=== PATIENT | male | born 1950 | race Caucasian/White ===

== ENCOUNTER 2024-07-15 10:33 | Outpatient (CLI) | payer MEDICARE, MEDICAID ==
[2024-07-15] MEDS ORDERED: IODIXANOL 320 MG/ML INFUS..BTL 100ML IV ONE (10:48)
[2024-07-15 11:03] LABS: BASOPHILS # (AUTO) 0.1 X10'3 (0-0.2); BASOPHILS % (AUTO) 1.2 % (0-1); EOSINOPHILS # (AUTO) 0.5 X10'3 (0-0.9); EOSINOPHILS % (AUTO) 6.6 % (0-6); HEMATOCRIT 47.6 % (42.0-52.0); HEMOGLOBIN 15.6 g/dl (14.0-17.9); LYMPHOCYTES # (AUTO) 1.3 X10'3 (1.1-4.8); LYMPHOCYTES % (AUTO) 16.4 % (21-51); MEAN CORPUSCULAR HEMOGLOBIN 26.9 PG (27.0-31.0); MEAN CORPUSCULAR HGB CONC 32.8 g/dL (33.0-36.5); MEAN PLATELET VOLUME 7.6 FL (7.4-10.4); MONOCYTES # (AUTO) 0.7 X10'3 (0-0.9); NEUTROPHILS # (AUTO) 5.1 X10'3 (1.8-7.7); NEUTROPHILS % (AUTO) 66.8 % (42-75); PLATELET COUNT 238 X10'3 (140-440); RED BLOOD COUNT 5.81 X10'6 (4.70-6.10); WHITE BLOOD COUNT 7.7 X10'3 (4.5-11.0)
[2024-07-15 11:17] LABS: APTT 26 SECONDS (22-32); INR 1.1 INR; PROTHROMBIN TIME 11.2 SECONDS (9.0-12.0)
[2024-07-15 11:19] LABS: ANISOCYTOSIS 2+; PLATELET ESTIMATE NORMAL
[2024-07-15 11:29] LABS: ALANINE AMINOTRANSFERASE 72 U/L (12-78); ALBUMIN 4.3 G/DL (3.4-5.0); ALBUMIN/GLOBULIN RATIO 1.2 (1.1-1.5); ALKALINE PHOSPHATASE 95 IU/L (46-116); ANION GAP 10 (8-16); ASPARTATE AMINO TRANSFERASE 31 U/L (10-37); BILIRUBIN,TOTAL 0.9 MG/DL (0.1-1.0); BLOOD UREA NITROGEN 29 MG/DL (7-18); BUN/CREATININE RATIO 23.8 (10.0-20.0); CALCIUM 9.2 MG/DL (8.5-10.1); CHLORIDE 105 MMOL/L (99-107); CREATININE 1.22 MG/DL (0.60-1.10); GLUCOSE 95 MG/DL (70-104); POTASSIUM 4.7 MMOL/L (3.5-5.1); PRO BRAIN NATRIURETIC PEPTIDE 5394 PG/ML (0-125); SODIUM 141 MMOL/L (135-145); TOTAL CARBON DIOXIDE 26.4 MMOL/L (24-32); eGFR 58 ML/MIN
[2024-07-15] MEDS ORDERED: metoprolol tartrate 1mg/ml inj IV ONE (12:02)
== END 2024-07-15 23:59 | disposition home or self-care (01) ==
LOC: RAD 10:33
PROVIDERS: ATTEND Internal Medicine Cardiovascular Disease
DX: I35.0 Nonrheumatic aortic (valve) stenosis (principal); J94.8 Other specified pleural conditions; J98.11 Atelectasis; J98.4 Other disorders of lung; R06.02 Shortness of breath; I65.23 Occlusion and stenosis of bilateral carotid arteries; N40.0 Benign prostatic hyperplasia without lower urinary tract symptoms; M51.379 Other intervertebral disc degeneration, lumbosacral region without mention of lumbar back pain or lower extremity pain; M51.34 Other intervertebral disc degeneration, thoracic region; M16.11 Unilateral primary osteoarthritis, right hip
CPT/HCPCS: 36415; 71046; 71275; 74174; 75572; 80053; 83880; 85008; 85025; 85610; 85730; 93880; J3490; Q9967

== ENCOUNTER 2024-09-24 09:52 | Inpatient (IN) | payer MEDICARE, MEDICAID ==
[2024-09-21 15:08] LABS: BASOPHILS # (AUTO) 0.1 X10'3 (0-0.2); BASOPHILS % (AUTO) 1.2 % (0-1); BILIRUBIN,URINE NEGATIVE (Neg); CLARITY,URINE CLEAR (Clear); COLOR,URINE YELLOW (Yellow); EOSINOPHILS # (AUTO) 0.2 X10'3 (0-0.9); EOSINOPHILS % (AUTO) 3.2 % (0-6); GLUCOSE, URINE >=1000 mg/dl (Neg); KETONES,URINE NEGATIVE (Neg); LEUKOCYTE ESTERASE ,URINE NEGATIVE (Neg); LYMPHOCYTES # (AUTO) 1.1 X10'3 (1.1-4.8); LYMPHOCYTES % (AUTO) 15.6 % (21-51); MEAN CORPUSCULAR HEMOGLOBIN 28.6 PG (27.0-31.0); MEAN CORPUSCULAR VOLUME 89.4 FL (78-98); MEAN PLATELET VOLUME 7.8 FL (7.4-10.4); MONOCYTES # (AUTO) 0.7 X10'3 (0-0.9); MONOCYTES % (AUTO) 10.1 % (2-12); NEUTROPHILS % (AUTO) 69.9 % (42-75); NITRITES, URINE NEGATIVE (Neg); OCCULT BLOOD,URINE NEGATIVE (Neg); PH,URINE 5.5 (4.8-8.0); PRE OP HEMATOCRIT 48.1 % (42.0-52.0); PRE OP HEMOGLOBIN 15.4 g/dL (14.0-17.9); PRE OP PLATELET COUNT 227 X10'3 (140-440); PRE OP WHITE BLOOD COUNT 7.2 10'3 (4.8-10.8); PROTEIN,URINE NEGATIVE (Neg); RED BLOOD COUNT 5.38 X10'6 (4.70-6.10); RED CELL DISTRIBUTION WIDTH 19.6 % (11.5-14.5); UROBILINOGEN,URINE 0.2 E.U/dL (0.2-1.0)
[2024-09-21 15:09] LABS: UA COLLECTION TYPE CLN CATCH MIDSTREAM
[2024-09-21 15:18] LABS: BACTERIA,URINE FEW /HPF (Neg); MUCUS STRANDS NONE SEEN /LPF (Neg); RBC,URINE 0-2 /HPF (0-2); SQUAMOUS EPITHELIAL CELL,UR NONE SEEN /LPF (FEW); WBC,URINE NONE SEEN /HPF (0-4)
[2024-09-21 15:23] LABS: PRE OP INR 1.1 INR; PRE OP PROTIME 11.1 SECONDS (9.0-12.0)
[2024-09-21 15:28] LABS: ANISOCYTOSIS 2+; PLATELET ESTIMATE NORMAL
[2024-09-21 15:29] LABS: ELLIPTOCYTES FEW; TEAR DROP CELLS FEW
[2024-09-21 15:31] LABS: ALBUMIN 4.2 G/DL (3.4-5.0); ALBUMIN/GLOBULIN RATIO 1.1 (1.1-1.5); ALKALINE PHOSPHATASE 84 IU/L (46-116); BLOOD UREA NITROGEN 25 MG/DL (7-18); BUN/CREATININE RATIO 22.9 (10.0-20.0); CALCIUM 8.9 MG/DL (8.5-10.1); CHLORIDE 106 MMOL/L (99-107); CREATININE 1.09 MG/DL (0.60-1.10); PRE OP ALT 23 U/L (30-65); PRE OP ANION GAP 7 (8-16); PRE OP AST 15 U/L (10-37); PRE OP BILIRUB, TOTAL 1.1 MG/DL (0.0-1.0); PRE OP GLUCOSE 89 MG/DL (70-104); PRE OP POTASSIUM 5.1 MMOL/L (3.4-5.1); PRE OP SODIUM 140 MMOL/L (135-145); PRO BRAIN NATRIURETIC PEPTIDE 4499 PG/ML (0-125); TOTAL CARBON DIOXIDE 26.8 MMOL/L (24-32); TOTAL PROTEIN 7.9 G/DL (6.4-8.2); eGFR 66 ML/MIN
[2024-09-24] VITALS (12 sets, daily range): BP systolic 101–142; BP diastolic 51–72; PULSE 69–93; RESP 8–17; TEMP 97.7–97.8; O2SAT 94–100
[~2024-09-24] VITALS: Ht 190.5 cm; Wt 88.8 kg
[2024-09-24] MEDS: phenylephrine inj 50 MG in normal saline 250ml IV solN IV SCH (05:30)
[2024-09-24] MEDS: ceFAZolin 2gm in dextrose, iso 50 ML IV ONE (05:30)
[2024-09-24] MEDS: DOCUMENT DATE & TIME OF BETA-BLOCKER PO ONE (05:30)
[2024-09-24] MEDS: nitroPRUSSIDE sod inj. 50 MG in dextrose 5%-water 248 ML IV SCH (05:30)
[~2024-09-24 09:52] MED LIST: CARV3.122 PO; EMPA10TA PO; FURO-150 PO; SACU1TAB PO; ondansetron/PF 4mg/2ml inj IV PRN; protamine sulfate 10mg/ml inj. ONE
[2024-09-24] MEDS: VANCOMYCIN/WATER FOR INJ (PEG) 1.5GM/300 ML IVPB IV ONE (10:57)
[2024-09-24] MEDS: aspirin 325mg tablet PO ONE (10:57)
[2024-09-24] MEDS: famotidine 20mg tablet PO ONE (10:57)
[2024-09-24] MEDS: ringers solution, lacted 1,000 ML IV SCH ×2 (10:58→17:00)
[2024-09-24] MEDS ORDERED: morphine 4 MG/ML inj SYRINge IV PRN (13:30)
[2024-09-24] MEDS ORDERED: morphine 2 MG/ML inj. syringe IV PRN (13:30)
[2024-09-24] MEDS ORDERED: hydrALAZINE 20mg/ml inj. IV PRN ×2 (13:30→16:25)
[2024-09-24] MEDS ORDERED: proCHLORperazine 10 MG/2 ml inj IV PRN ×2 (13:30→16:25)
[2024-09-24] MEDS ORDERED: HYDROmorphone/PF 0.2 MG/ML SYRINGE IV PRN ×2 (13:30)
[2024-09-24] MEDS ORDERED: ondansetron/PF 4mg/2ml inj IV PRN ×2 (13:30→16:25)
[2024-09-24] MEDS ORDERED: meperidine/PF 25mg/ml syringe IV PRN (13:30)
[2024-09-24] MEDS ORDERED: acetaminophen 1,000mg/100ml IV 100 ML IV PRN (13:30)
[2024-09-24] MEDS ORDERED: labetalol 20mg/4ml (5mg/ml) syringe IV PRN ×2 (13:30→16:25)
[2024-09-24] MEDS ORDERED: NORepinephrine 8mg/ 250ml NS 250 ML IV ONE (14:34)
[2024-09-24] MEDS ORDERED: LIDOcaine 1% 30ml preserv. free vial ONE (14:42)
[2024-09-24] MEDS ORDERED: iohexol 350MG/ML 100ml bottle IV ONE (14:42)
[2024-09-24] MEDS ORDERED: heparin 1,000 UNITS/NS 500ml 1,500 ML ONE (14:43)
[2024-09-24] MEDS ORDERED: fentaNYL/PF 50MCG/1 ML 2ML syringe ONE (14:56)
[2024-09-24] MEDS ORDERED: midazolam 1 mg/ML 2ml injection ONE (14:56)
[2024-09-24] MEDS ORDERED: propofol inj 20 ML IV ONE ×2 (15:15)
[2024-09-24] MEDS ORDERED: heparin 1,000unit/ml 10ml vial 10 ML ONE (15:15)
[2024-09-24] MEDS ORDERED: LIDOCAINE 2%/EPI 1:100,000 inj. Multi-dose 20 ML VIAL ONE (16:14)
[2024-09-24] MEDS ORDERED: diphenhydrAMINE 25mg capsule PO PRN (16:25)
[2024-09-24] MEDS ORDERED: potassium Cl 40MEQ/1/2NS 520ml 520 ML IV PRN (16:25)
[2024-09-24] MEDS ORDERED: docusate sod 100mg capsule PO PRN (16:25)
[2024-09-24] MEDS ORDERED: potassium CL 10mEq/100ml bag 100 ML IV PRN (16:25)
[2024-09-24] MEDS: normal saline 1000ml 1,000 ML IV SCH (16:25)
[2024-09-24] MEDS ORDERED: ALPRAZolam 0.25mg tablet PO PRN (16:25)
[2024-09-24] MEDS ORDERED: potassium Cl 20mEq/100mL bag 100 ML IV PRN (16:25)
[2024-09-24] MEDS ORDERED: pantoprazole 40mg Tablet.DR PO PRN (16:25)
[2024-09-24] MEDS ORDERED: magnesium sulf-water 4G/100mL 100 ML IV PRN (16:25)
[2024-09-24] MEDS ORDERED: potassium Cl 20 mEq SR tablet PO PRN (16:25)
[2024-09-24] MEDS ORDERED: potassium Cl 40MEQ/270ML bag 250 ML IV PRN (16:25)
[2024-09-24] MEDS ORDERED: acetaminophen 325mg tablet PO PRN (16:25)
[2024-09-24] MEDS ORDERED: magnesium sulf-water 2g/50mL 50 ML IV PRN (16:25)
[2024-09-24] MEDS ORDERED: HYDROcodone/acetaminophen 5mg/325mg tablet PO PRN (16:25)
[2024-09-24] MEDS: sacubitril/valsartan 24mg-26mg tablet PO SCH (19:49)
[2024-09-24] MEDS: carVEDilol 3.125mg tablet PO SCH (19:49)
[2024-09-24] MEDS: vancomycin/NS 1 GM ADD-VANTAGE 250 ML IV SCH (19:51)
[2024-09-24] MEDS ORDERED: VANCOMYCIN 1GM 200ML H20 (PEG) 200 ML IV SCH (20:00)
[2024-09-24] MEDS: ceFAZolin 1GM/D5W- ADD-VANTAGE 50 ML IV SCH (23:39)
[2024-09-24] MEDS: sod chloride 0.9% 10ml flush syringe IV SCH (23:55)
[2024-09-25 02:00] VITALS: BP 106/54; PULSE 69; RESP 14; TEMP 97.7; O2SAT 97
[2024-09-25 06:00] VITALS: BP 103/50; PULSE 60; RESP 18; TEMP 98.1; O2SAT 96
[2024-09-25 06:42] LABS: BASOPHILS # (AUTO) 0.1 X10'3 (0-0.2); BASOPHILS % (AUTO) 1.2 % (0-1); EOSINOPHILS # (AUTO) 0.5 X10'3 (0-0.9); HEMATOCRIT 42.7 % (42.0-52.0); HEMOGLOBIN 13.8 g/dl (14.0-17.9); LYMPHOCYTES # (AUTO) 0.7 X10'3 (1.1-4.8); LYMPHOCYTES % (AUTO) 11.6 % (21-51); MEAN CORPUSCULAR HGB CONC 32.4 g/dL (33.0-36.5); MEAN CORPUSCULAR VOLUME 89.6 FL (78-98); MEAN PLATELET VOLUME 7.9 FL (7.4-10.4); MONOCYTES # (AUTO) 0.7 X10'3 (0-0.9); MONOCYTES % (AUTO) 11.5 % (2-12); NEUTROPHILS # (AUTO) 4.4 X10'3 (1.8-7.7); NEUTROPHILS % (AUTO) 68.7 % (42-75); PLATELET COUNT 156 X10'3 (140-440); RED BLOOD COUNT 4.76 X10'6 (4.70-6.10); RED CELL DISTRIBUTION WIDTH 18.6 % (11.5-14.5); WHITE BLOOD COUNT 6.5 X10'3 (4.5-11.0)
[2024-09-25 07:32] LABS: ALANINE AMINOTRANSFERASE 19 U/L (12-78); ALBUMIN 3.1 G/DL (3.4-5.0); ALBUMIN/GLOBULIN RATIO 1.1 (1.1-1.5); ALKALINE PHOSPHATASE 71 IU/L (46-116); ANION GAP 7 (8-16); ASPARTATE AMINO TRANSFERASE 21 U/L (10-37); BLOOD UREA NITROGEN 18 MG/DL (7-18); BUN/CREATININE RATIO 19.6 (10.0-20.0); CALCIUM 8.5 MG/DL (8.5-10.1); CHLORIDE 109 MMOL/L (99-107); CREATININE 0.92 MG/DL (0.60-1.10); GLUCOSE 76 MG/DL (70-104); MAGNESIUM 2.2 MG/DL (1.5-2.4); POTASSIUM 4.3 MMOL/L (3.5-5.1); PRO BRAIN NATRIURETIC PEPTIDE 2641 PG/ML (0-125); SODIUM 141 MMOL/L (135-145); TOTAL CARBON DIOXIDE 25.1 MMOL/L (24-32); TOTAL PROTEIN 5.8 G/DL (6.4-8.2); eCRCL 87 ML/MIN; eGFR 81 ML/MIN
[2024-09-25] MEDS: aspirin 81mg tab.chew PO SCH (07:45)
[2024-09-25] MEDS: furosemide 20MG tablet PO SCH (07:45)
[2024-09-25 08:32] LABS: ANISOCYTOSIS 2+; ELLIPTOCYTES FEW; PLATELET ESTIMATE NORMAL; TEAR DROP CELLS FEW
[2024-09-25 10:07] VITALS: RESP 18; O2SAT 96
[2024-09-25 11:30] VITALS: BP 147/54; PULSE 70; RESP 16; O2SAT 98
[2024-09-25] MEDS ORDERED: ASPI81TA53 PO (14:42)
[2024-09-25 15:00] VITALS: BP 114/54; PULSE 70; RESP 14; O2SAT 99
== END 2024-09-25 17:00 | disposition home or self-care (01) | DRG 266 ==
LOC: PAS IN 09:52 → EDSTATUS 12:00 → PCU 3S 16:55 → S STAY 09-25 11:13
PROVIDERS: ADMIT Internal Medicine Cardiovascular Disease; ATTEND Internal Medicine Cardiovascular Disease
PROC: 027F3ZZ Dilation of Aortic Valve, Percutaneous Approach (ICD-10-PCS; 2024-09-24)
PROC: B41D1ZZ Fluoroscopy of Aorta and Bilateral Lower Extremity Arteries using Low Osmolar Contrast (ICD-10-PCS; 2024-09-24)
PROC: 02RF38Z Replacement of Aortic Valve with Zooplastic Tissue, Percutaneous Approach (ICD-10-PCS; principal; 2024-09-24 14:46)
DX: I35.0 Nonrheumatic aortic (valve) stenosis (principal); Z00.6 Encounter for examination for normal comparison and control in clinical research program; I50.23 Acute on chronic systolic (congestive) heart failure; I11.0 Hypertensive heart disease with heart failure
CPT/HCPCS: 33361; 36415; 71045; 71046; 76937; 80053; 81001; 82948; 83735; 83880; 85008; 85025; 85347; 85610; 85730; 86885; 86900; 86901; 86920; 87081; 93005; 93308; A4618; A6258; A6449; C1756; C1760; C1769; C1894; G0378; J0690; J1644; J2003; J2250; J2371; J2704; J2720; J3010; J3370; J3372; J3490; J7040; J7050; J7060; J7120; Q9967